=== PATIENT | female | born 1995 | race Caucasian/White ===

== ENCOUNTER 2023-01-03 11:42 | Outpatient (CLI) | payer OTHER, SELFPAY ==
[2023-01-03 18:14] LABS: Chlamydia DNA Amplified* NOT DETECTED (No Detected); GC DNA Amplified* NOT DETECTED (No Detected)
== END 2023-01-03 11:43 | disposition home or self-care (01) ==
PROVIDERS: PCP Family Medicine; Visit Provider Advanced Practice Midwife
DX: Z34.91 Encounter for supervision of normal pregnancy, unspecified, first trimester (principal); Z3A.08 8 weeks gestation of pregnancy
CPT/HCPCS: 86592; 86703; 86762; 86787; 86803; 86850; 86900; 86901; 87086; 87340; 87491; 87591

== ENCOUNTER 2023-01-03 12:06 | Outpatient (CLI) | payer OTHER, SELFPAY ==
--- NOTE | 2023-01-03 12:15 | CRLHL7_ITS ---
For Patients: As a result of the Century Cures Act, medical imaging exams and procedure reports are released immediately into your electronic medical record. You may view this report before your referring provider. If you have questions, please contact your health care provider. INDICATION: First trimester scan, establish dates. COMPARISON: None. TECHNIQUE: Real-time gonzales-scale imaging of the pelvis was performed. FINDINGS: Sonographic imaging demonstrates a single living intrauterine gestation. The embryo demonstrates a regular cardiac rate measuring 167 beats per minute. The embryo`s crown-rump length measurement of 1.8 cm corresponds to a gestational age of 8 weeks 1 day with a sonographic due date of August 14, 2023. There is a normal-appearing yolk sac. There are no gross abnormalities noted within the embryo at this early state of development. The placenta has not yet developed. The gestational sac has a normal appearance and there is no evidence of a perigestational hemorrhage. The amount of fluid within the sac appears appropriate for gestational age. The cervix is closed. The myometrium appears normal. The left ovary is normal in size and appearance measuring 2.8 x 1.9 x 2.1 cm. The right ovary is enlarged secondary to 2 adjacent simple cysts. Overall size of the right ovary measures 5.9 x 3.0 x 3.5 cm. There is a 2.3 x 3.2 x 2.9 cm cyst. There is a 2nd 3.4 x 3.0 x 3.2 cm cyst. There is also a corpus luteum cyst of measuring 2.6 x 1.8 x 2 cm. There are no suspicious fluid collections noted in the cul-de-sac. IMPRESSION: Normal first trimester OB ultrasound exam. Gestational age calculated at 8 weeks 1 day with a sonographic due date of August 14, 2023. Asymmetrically larger right ovary relative to the left secondary to 2 simple cysts and corpus luteum cyst of . Dictated by Placido Iraheta MD @ 01/04/2023 8:20:34 AM (Electronically Signed)
== END 2023-01-03 12:07 | disposition home or self-care (01) ==
LOC: US 12:08
PROVIDERS: PCP Family Medicine; Visit Provider Registered Nurse
DX: Z34.91 Encounter for supervision of normal pregnancy, unspecified, first trimester (principal); O34.81 Maternal care for other abnormalities of pelvic organs, first trimester; N83.11 Corpus luteum cyst of right ovary; Z3A.08 8 weeks gestation of pregnancy
CPT/HCPCS: 76817; 86703; 86803; 86850; 86900; 86901; 87340; 87491; 87591

== ENCOUNTER 2023-03-30 13:49 | Outpatient (CLI) | payer OTHER, SELFPAY ==
--- NOTE | 2023-03-30 14:00 | CRLHL7_ITS ---
For Patients: As a result of the Century Cures Act, medical imaging exams and procedure reports are released immediately into your electronic medical record. You may view this report before your referring provider. If you have questions, please contact your health care provider. INDICATION: Evaluate anatomy. COMPARISON: None. TECHNIQUE: Real time gonzales scale imaging of the fetus was performed. FINDINGS: Sonographic imaging demonstrates a single living intrauterine gestation. Fetus demonstrates a regular cardiac rate of 144 beats per minute. Fetus has a breech orientation. The placenta lies anteriorly without evidence of placenta previa. Amniotic fluid volume appears normal. Single deepest vertical pocket: 4.7 cm. The cervix is closed and measures 4.0 cm in length. The composite ultrasound gestational age is calculated at 20 weeks 6 days with an estimated sonographic due date of August 11, 2023. The estimated weight is 387 grams which lies at the 66th percentile. The following biometric measurements were obtained: Biparietal diameter: 4.7 cm/20 weeks 2 days 38% Head circumference: 18.1 cm/20 weeks 4 days 40% Abdominal circumference: 16.2 cm/21 weeks 2 days 67% Femur length: 3.4 cm/20 weeks 5 days 45% The HC/AC ratio measures: 1.12 range (1.06-1.25) On anatomic survey, there is a normal appearance of the cerebral ventricles, cisterna magna and cerebellum. The nose, lips, and facial profile appear normal. The cervical, thoracic and lumbar spine are well visualized and appear normal. There is a normal four-chamber heart view and the left and right ventricular outflow tracts appear normal. diaphragm, stomach, kidneys and bladder appear normal. The four extremities appear normal. IMPRESSION: Normal OB ultrasound exam with concordance of clinical and sonographic dating. No intrinsic abnormalities noted on anatomic survey. Dictated by Placido Iraheta MD @ 03/31/2023 11:12:00 AM (Electronically Signed)
== END 2023-03-30 13:50 | disposition home or self-care (01) ==
LOC: US 13:50
PROVIDERS: PCP Family Medicine; Visit Provider Advanced Practice Midwife
DX: Z34.92 Encounter for supervision of normal pregnancy, unspecified, second trimester (principal); Z3A.20 20 weeks gestation of pregnancy
CPT/HCPCS: 76805

== ENCOUNTER 2023-05-25 11:05 | Outpatient (CLI) | payer OTHER, SELFPAY | END 2023-05-25 11:06 | disposition home or self-care (01) | LOC: NFLDREF 06-02 09:06 | PROVIDERS: PCP Family Medicine; Referring Provider Family Medicine; Visit Provider Advanced Practice Midwife | DX: Z34.93 Encounter for supervision of normal pregnancy, unspecified, third trimester (principal); Z3A.28 28 weeks gestation of pregnancy | CPT/HCPCS: 86592 ==

== ENCOUNTER 2023-06-08 10:31 | Outpatient (CLI) | payer OTHER, SELFPAY | END 2023-06-08 10:32 | disposition home or self-care (01) | LOC: NFLDREF 10:42 | PROVIDERS: PCP Family Medicine; Visit Provider Advanced Practice Midwife | DX: Z34.93 Encounter for supervision of normal pregnancy, unspecified, third trimester (principal); Z3A.30 30 weeks gestation of pregnancy | CPT/HCPCS: 87086 ==

== ENCOUNTER 2023-06-09 09:36 | Outpatient (CLI) | payer OTHER, SELFPAY ==
[2023-06-09 09:43] VITALS: BP 123/73; PULSE 93; RESP 16; TEMP 36.8; O2SAT 98
[2023-06-09 14:04] VITALS: BP 123/76; PULSE 91; RESP 18; TEMP 36.6
[2023-06-09 14:32] LABS: Clue Cells No Clue Cells Seen (None Seen); Trichomonas No Trichomonas Seen (None Seen); Yeast No Yeast Seen (None Seen)
[2023-06-09 14:47] LABS: Fetal Fibronectin* Negative (Negative)
--- NOTE | 2023-06-09 15:12 | P.OBO_ITS ---
OB Outpatient HPI History of Present Illness Time Seen by Provider: 15:00 Date Seen: 06/09/23 History of Present Illness: 28 year old at 30.5 weeks gestation, [place] 08/13/23, presents after a fall this AM around 0830. She did not hit her abdomen in the fall. Initial plan was 4 hours of monitoring and plan to DC home after. She is RH + blood type. At the end of the 4 hours of monitoring, she was noted to have frequent bouts of contractions, which she is feeling. She does admit that she has been having increased contractions X 2 weeks, especially with activity, and has tried to decrease/limit her activity. Today's contractions do feel similar to what she has been having, though possibly slightly stronger. She was seen in the clinic recently and discussed these contractions, and a UA was collected. No wet prep was done, but she denies any abnormal discharge, itching, irritation, etc. Baby moving naturally: Yes Bleeding: No Contractions: Yes Leaking fluid: No Discharge: No Meds Home Medications and Allergies Home Medications Medication Instructions Recorded Confirmed Type ascorbic acid (vitamin C) 250 mg 250 mg PO QDAY 01/03/23 06/09/23 History tablet cholecalciferol (vitamin D3) 50 75 mcg PO QDAY 01/03/23 06/09/23 History mcg (2,000 unit) capsule mecobalamin (vitamin B12) 1,000 1,000 mcg PO QDAY 01/03/23 06/09/23 History mcg chewable tablet prenat.vits,nikki,rmp-uuhr-qtfmd 1 tab PO QDAY 01/03/23 06/09/23 History calcium carbonate 600 mg calcium 600 mg PO QDAY 03/30/23 06/09/23 History (1,500 mg) tablet (Calcium) multivitamin with iron (Daily 1 tab PO QDAY 06/08/23 06/09/23 History Vites/Iron tablet) Allergies Allergy/AdvReac Type Severity Reaction Status Date / Time shrimp Allergy Unknown Swelling Verified 06/09/23 09:47 of Lip/Tongue/Throat [facility] Medical History Allergy to seafood ?Z91.013 - Allergy to seafood (ICD-10) Anxiety ?F41.9 - Anxiety disorder, unspecified (ICD-10) Mild depression ?F32.A - Depression, unspecified (ICD-10) Painful menstruation ?N94.6 - Dysmenorrhea, unspecified (ICD-10) Family History (Updated 01/03/23 @ 13:18 by Christine Kenny CNM) Uncle Prostate cancer Father Pancreatic cancer, Onset Age: 72 Maternal Grandmother Diabetes Maternal Grandfather Diabetes Paternal Grandfather Stroke, Onset Age: 60 Paternal Grandmother Stroke, Onset Age: 60 Other No family history of breast cancer No family history of colorectal cancer Social History (Updated 01/03/23 @ 18:44 by Christine Kenny CNM) Narrative: Nonsmoker. Social EtOH (2/week). Daily exercise weights & cardio. . SOCIAL? ? Education: student - bachelors? ? Work: [employer]? ? Partner: Jemal, , automotive electrician helper ? ? Lives with: Jemal, mom ? ? Pets: farm? ? Abuse: Denies past Unable to assess current, partner present? ? Special Diet: Denies? ? Ok with a blood transfusion: yes? ? Culture or congregational beliefs: denies? RISK FACTORS? ? Exercise Times/wk: working on the farm? ? Depression/Anxiety: both, situational w/ of father.? ? Previous Treatments - briefly taken at that time Therapy - did at the time. MERLINE: 8 PHQ 9: 5 Feels as though these are tolerable levels and she is functioning well? ? Seat Belt Use: Routinely ? Smoking: Denies past/present? ? Alcohol/day: 1 glass of wine prior to finding out. ? ? Caffeine: 1 cup coffee/day - large cup? ? Drug Use: Denies past/present? Planning to breastfeed: yes? Breastfed other children NA Complications with previous NA? Smoking Status: Never smoker Little interest or pleasure in doing things: not at all Feeling down, depressed, or hopeless: several days History History 1 Elective abortions 0 Para 0 Spontaneous abortions 0 Hx # Term Pregnancies 0 Ectopic pregnancies Hx # Pregnancies 0 Multiple births Number of Living Children 0 OB - H&P: Exam Physical Exam Vital signs: Temp Pulse Resp BP Pulse Ox 97.9 F 91 18 123/76 98 06/09/23 14:04 06/09/23 14:04 06/09/23 14:04 06/09/23 14:04 06/09/23 09:43 Constitutional Constitutional: no acute distress Routine HEENT Exam Head: Present normocephalic Routine Neck Exam Neck: Present full ROM Routine Respiratory Exam Respiratory: Present CTA bilaterally Routine Cardiovascular Exam Cardiovascular: RRR Routine Abdominal Exam Abdominal: Present soft; Absent guarding, rigid or tenderness Comments: Gravid Routine Exam External: Absent erythema, lesions or discharge Detailed Labor and Delivery Exam Patient Gravid: Yes Dilation (cm): 0 Effacement (%): 0 Cervix position: anterior Consistency: firm Contraction intensity: Mild Fetus (Single) Amniotic Membrane Status: intact Heart Rate Baseline: 135 Monitor Accelerations: Present Monitor Decelerations: None Skilled Nursing Variability: Moderate (6-25) Routine Back/Spine/Pelvis Exam Back/Spine: full ROM Routine Neurological Exam Present alert and oriented X3 Routine Psychiatric Exam Present normal affect and normal thought process Labs Labs Laboratory Tests 06/09/23 Range/Units 14:04 Vaginal Trichomonas No Trichomonas Seen (None Seen) Vaginal Yeast No Yeast Seen (None Seen) Vaginal Clue Cells No Clue Cells Seen (None Seen) Fibronectin Negative (Negative) Assessment and Plan Assessment and plan (1) Fall: Status: Acute (2) Supervision of normal first : Status: Acute (3) Uterine contractions: Status: Acute Plan at 30.5 weeks Blood type O+ Fall 06/09/23 at 0830, no abdominal trauma Mild contractions, likely steven mirta Reviewed w/ Cleo the small risk for abruption following a fall. While these contractions are likely just continued steven mirta, they are frequent enough to meet the requirement for 24 hours of monitoring. I also recommended further assessment of them - a wet prep, fibronectin and a SVE. These labs returned negative and her cervix was closed and thick. She is agreeable to continued 24 hours of monitoring. Time Spent with Patient Time with Patient: less than 15 minutes Disposition: Observation Admit to [facility] (On L & D for continued monitoring X 24 hours)
[2023-06-09 19:33] VITALS: BP 117/77; PULSE 86
[2023-06-09 19:34] VITALS: PULSE 90; O2SAT 98
[2023-06-09 19:52] VITALS: BP 117/77; PULSE 88; RESP 16; TEMP 36.6; O2SAT 98
[2023-06-10] MEDS: ACETAMINOPHEN 500 MG TABLET 1000 MG PO (01:20)
--- NOTE | 2023-06-10 07:40 | W.PM.OB.MED ---
DS: Providers Provider Date Seen: 06/10/23 Primary care physician: Constanza Ingram MD Attending Physician on discharge: Christine Kenny CNM Date of Discharge: 06/10/23 DS: Diagnosis Discharge Diagnosis (1) Fall: Status: Acute Problem details: 24 hours post fall at 0830 on 06/10/23 (2) Supervision of normal first : Status: Acute (3) Uterine contractions: Status: Acute Problem details: No changes in frequency or intensity. Cervical exam unchanged. Discharge Plan Discharge Disposition: Home, Self-Care Primary Care Provider: Constanza Ingram Activity Restrictions/Additional Instructions: Patient verbalized understanding of reviewed discharge instructions. Discharge Orders: Discharge Order (Routine); Ordered 06/10/23 Ordered By: Magaly Rivas Discharge Medications: No Action prenat.vits,nikki,nnr-eddg-okazk Tablet 1 tab PO QDAY mecobalamin (vitamin B12) 1,000 mcg tablet,chewable 1,000 mcg PO QDAY ascorbic acid (vitamin C) 250 mg tablet 250 mg PO QDAY cholecalciferol (vitamin D3) 50 mcg (2,000 unit) capsule 75 mcg PO QDAY calcium carbonate [Calcium 600] 600 mg calcium (1,500 mg) tablet 600 mg PO QDAY multivitamin with iron [Daily Vites/Iron] Tablet 1 tab PO QDAY Forms: [employer] Info Instructions Hospital Course Course Hospital Course: Cleo was triaged yesterday after a fall at home. She was shruti regularly but not painfully since then. She does report feeling the same cramping for the last 2 weeks. She was observed over night with continuous monitoring. She is shruti every 1.5-6 minutes irregularly with some uterine irritability. This morning she still reports it as cramping and denies changes in how they are feeling. She denies bleeding or leaking fluid and is appreciating good movement. Reactive tracing with baseline 130, + accels, -decels, moderate variability. Cervical exam unchanged. She would like to discharge this morning. Reviewed labor signs and symptoms. Labs Labs: Laboratory Tests 06/09/23 Range/Units 14:04 Vaginal Trichomonas No Trichomonas Seen (None Seen) Vaginal Yeast No Yeast Seen (None Seen) Vaginal Clue Cells No Clue Cells Seen (None Seen) Fibronectin Negative (Negative) OB Problem List Additional Plan (1) Fall: Problem details: 24 hours post fall at 0830 on 06/10/23 Status: Acute (2) Supervision of normal first : Status: Acute (3) Uterine contractions: Problem details: No changes in frequency or intensity. Cervical exam unchanged. Status: Acute Plan Discharge home 24 hours post fall. Contractions unchanged in frequency or intensity. Cervical exam 0/thick/high. Unchanged from pervious exam. Reviewed labor precautions. DS: Summary Vital Signs Vital Signs: Vital Signs Temp Pulse Resp BP Pulse Ox 06/09/23 19:52 98 F 16 117/77 98 06/09/23 19:34 98 06/09/23 19:33 86 117/77 06/09/23 14:04 97.9 F 18 06/09/23 14:04 91 123/76 06/09/23 09:43 98.2 F 93 16 123/73 98 Discharge Examination General appearance: alert, in no apparent distress and normal affect Physical Examination findings: Psychiatric:? Alert and oriented x3? HEENT:? Normocephalic, atraumatic? Neck:? Supple without adenopathy or thyromegaly? Lungs:? Clear to auscultation bilaterally? Heart:? Regular rate and rhythm, no murmur, rub or gallop? Abdomen:? Soft, nontender, and gravid? Extremities:? No edema or erythema? Pelvic:? SVE: 0cm/thick/high? Membrane status:? intact?
[2023-06-10 08:35] VITALS: BP 103/69; PULSE 89
[2023-06-10 08:36] VITALS: PULSE 90; O2SAT 97
[2023-06-10 08:37] VITALS: RESP 16; TEMP 36.8
--- NOTE | 2023-06-10 09:43 | PC.OBNST ---
The provider's electronic signature indicates the NST is reactive/appropriate for gestational age. *Note to provider: If an addendum is required, open the patient's chart and click on the note under the Nurse/Allied Health tab.
== END 2023-06-10 09:30 | disposition home or self-care (01) ==
LOC: OB OUT 09:36 → OB 09:36
PROVIDERS: PCP Family Medicine; Visit Provider Advanced Practice Midwife
DX: O47.9 False labor, unspecified (principal); W19.XXXA Unspecified fall, initial encounter
CPT/HCPCS: 59025; 84112; 87210; 99213; A9270

== ENCOUNTER 2023-07-13 10:30 | Outpatient (CLI) | payer OTHER, SELFPAY | END 2023-07-13 10:31 | disposition home or self-care (01) | LOC: NFLDREF 07-17 06:46 | PROVIDERS: PCP Family Medicine; Referring Provider Family Medicine; Visit Provider Advanced Practice Midwife | DX: Z34.03 Encounter for supervision of normal first pregnancy, third trimester (principal); Z3A.35 35 weeks gestation of pregnancy | CPT/HCPCS: 87081; 87653 ==

== ENCOUNTER 2023-07-23 01:32 | Inpatient (IN) | payer OTHER, SELFPAY ==
[2023-07-23] VITALS (64 sets, daily range): BP systolic 93–129; BP diastolic 52–81; PULSE 71–95; RESP 16–18; TEMP 36.6–37.9; O2SAT 99–100; BMI 24.6
[2023-07-23] MEDS: hydrOXYzine pamoate 25 MG CAPSULE 100 MG PO ×2 (03:25→09:50)
[2023-07-23] MEDS: miSOPROStoL 25 MCG/0.25 TABLET PO ×2 (06:13→09:10)
--- NOTE | 2023-07-23 08:08 | P.LDBA_ITS ---
Subjective History of Present Illness Time Seen by Provider: 03:00 Date Seen: 07/23/23 Specific Issues/Plans H & P done 07/20 by Jovan Kenny 1. Hx of depression & anxiety, likely situation r/t of father. -Therapy and medication at that time to treat. -Reported noticed worsening mood but declines medication at this time 2. 2 cysts on Left ovary, Per Dr. Chow, follow up at anatomy scan 3. Heart Palpitation Needs PP pap Flu: 06/08/2023 Tdap- 06/08/2023 RSV: 07/06/2023 32wk Mental Health: 06/22/2023 34wk Hgb:07/06/2023 Comments: Cleo is being admitted to Labor and Delivery for SROM, large amount of clear fluid. She is a 28 year old G 1 P 0 at?37.0 weeks gestation. Her full history and physical was dictated by Kim on 07/20. Please see this for details. ? She states SROM occurred at about 0100. She is having mild contractions, but does not feel these are any stronger than what she has been having for weeks. She is coping well with labor pain/contractions. Her partner and mom are with her for support. She is planning an epidural for pain management if needed, but open to nitrous first. OB - Problem Based A/P Additional Plan (1) SROM (spontaneous rupture of membranes): Status: Acute (2) Supervision of normal first : Status: Acute Plan Assessment:?? at 37.0 weeks gestation?? GBS negative complicated by: -Hx of anxiety & depression, likely situational SROM, clear Not in active labor ? Plan:?? * Admit to L & D? * Reviewed option of expectant management vs augmentation. She would prefer to start augmentation in the next few hours. Decision made to proceed with cytotec to ripen her cervix. * Will give Vistaril to allow for some rest, as she has been up most of the night. * IV access: per protocol for IOL or epidural * Monitoring: per protocol for IOL or epidural * Candidate for analgesia of choice.? Planning nitrous, epidural for pain management * Anticipate progress to NVD Delivery/Labor/Induction Plan Plan: induction (Augmentation r/t PROM) Induction method: per misoprostol protocol OB Exam Physical Exam Vital signs: Temp Pulse Resp BP 98.8 F 86 16 109/70 07/23/23 07:34 07/23/23 07:34 07/23/23 07:00 07/23/23 07:34 Narrative: VSS, afebrile? General Appearance:? Calm, cooperative.? No acute distress.? Normal affect.? Psychiatric Exam: Alert and oriented, appropriate affect? HEENT: normocephalic, neck supple, full ROM? Respiratory:? Symmetrical chest wall movement.? Normal respiratory effort.? Clear to auscultation? Cardiac:? regular rate and rhythm? Abdomen: Gravid, non tender? Extremities:? normal and trace edema? Skin: warm, dry.??? Ctx:? Q 1-3 min apart.? Mild? ? ? FHTs:? Baseline: 135.? Variability: moderate.?? Accels: present.??? Decels:? none.? SVE: FT, softening per RN.? Membranes: ? SROM,? clear fluid, X 7 hours? Detailed Labor and Delivery Exam Patient Gravid: Yes
[2023-07-23] MEDS: MORPHINE 10 MG/ML inj IM (09:50)
[2023-07-23 12:43] LABS: Basophils Percent Auto 0.1 % (0.0-3.0); Eosinophils Percent Auto 0.4 % (0.0-7.0); Hematocrit 36.3 % (33.0-51.0); Hemoglobin* 12.3 gm/dL (12.0-16.0); Immature Granulocytes Pct Auto 0.4 %; Lymphocytes Percent Auto 11.2 % (20-44); Mean Corpuscular HGB Conc 34 gm/dL (32-36); Mean Corpuscular Hemoglobin 32 pg (26-34); Mean Corpuscular Volume 94 fL (80-100); Monocytes Percent Auto 8.4 % (0.0-11.0); Neutrophils Percent Auto 79.5 % (42.0-72.0); Platelet Count* 239 K/uL (140-440); RDW Coefficient of Variation % 12.6 % (11.5-15.5); Red Blood Count 3.86 m/uL (4.00-5.20); White Blood Count* 14.09 K/uL (4.50-11.00)
[2023-07-23] MEDS: LACTATED RINGERS 1000 ML 1,000 ML 125 ML IV ×3 (12:48→23:11)
[2023-07-23 12:51] LABS: Slide Review Reflex No
[2023-07-23] MEDS: ROPIVACAINE 0.2% 100 ml 100 ML 12 MG EPIDURAL ×2 (13:40→21:16)
[2023-07-23] MEDS: LIDOCAINE 2% (PF) 5 ML VIAL EPIDURAL (13:40)
--- NOTE | 2023-07-23 13:43 | PM.ANBPRC ---
[facility] Medical History Painful menstruation ?N94.6 - Dysmenorrhea, unspecified (ICD-10) Mild depression ?F32.A - Depression, unspecified (ICD-10) Anxiety ?F41.9 - Anxiety disorder, unspecified (ICD-10) Allergy to seafood ?Z91.013 - Allergy to seafood (ICD-10) Family History Uncle Prostate cancer Father Pancreatic cancer, Onset Age: 72 Maternal Grandmother Diabetes Maternal Grandfather Diabetes Paternal Grandfather Stroke, Onset Age: 60 Paternal Grandmother Stroke, Onset Age: 60 Other No family history of breast cancer No family history of colorectal cancer Social History (Updated 01/03/23 @ 18:44 by Christine Kenny CNM) Narrative: Nonsmoker. Social EtOH (2/week). Daily exercise weights & cardio. . SOCIAL? ? Education: student - bachelors? ? Work: [employer]? ? Partner: Jemal, , neon electrician ? ? Lives with: Jemal, mom ? ? Pets: farm? ? Abuse: Denies past Unable to assess current, partner present? ? Special Diet: Denies? ? Ok with a blood transfusion: yes? ? Culture or anglican beliefs: denies? RISK FACTORS? ? Exercise Times/wk: working on the farm? ? Depression/Anxiety: both, situational w/ of father.? ? Previous Treatments - briefly taken at that time Therapy - did at the time. MERLINE: 8 PHQ 9: 5 Feels as though these are tolerable levels and she is functioning well? ? Seat Belt Use: Routinely ? Smoking: Denies past/present? ? Alcohol/day: 1 glass of wine prior to finding out. ? ? Caffeine: 1 cup coffee/day - large cup? ? Drug Use: Denies past/present? Planning to breastfeed: yes? Breastfed other children NA Complications with previous NA? What is your current living situation?: I presently have a place to live Problems where you live: no known problems In the past 12 months, utilities in danger of being shut off: no In past 12 months, lack of transportation kept you from medical appts, meetings, work, or getting things needed for daily living: no In the past 12 mos, have been you worried that your food would run out before you had money to buy more?: never true In the past 12 mos, the food you bought just didn't last and you didn't have money to buy more?: never true Smoking Status: Never smoker How often does anyone, including family, friends and others, physically hurt you: never How often does anyone, including family, friends and others, insult or talk down to you: never How often does anyone, including family, friends and others, threaten you with harm: never How often does anyone, including family, friends and others, scream or curse at you: never Little interest or pleasure in doing things: not at all Feeling down, depressed, or hopeless: several days Meds Home Medications and Allergies Home Medications Medication Instructions Recorded Confirmed Type ascorbic acid (vitamin C) 250 mg 250 mg PO QDAY 01/03/23 07/23/23 History tablet cholecalciferol (vitamin D3) 50 75 mcg PO QDAY 01/03/23 07/23/23 History mcg (2,000 unit) capsule mecobalamin (vitamin B12) 1,000 1,000 mcg PO QDAY 01/03/23 07/23/23 History mcg chewable tablet prenat.vits,nikki,fqz-fmpy-pcpua 1 tab PO QDAY 01/03/23 07/23/23 History calcium carbonate 600 mg calcium 600 mg PO QDAY 03/30/23 07/23/23 History (1,500 mg) tablet (Calcium) ferrous sulfate 134 mg (27 mg 134 mg PO QDAY 06/22/23 07/23/23 History iron) tablet docusate sodium 100 mg capsule 100 mg PO QDAY 07/20/23 07/23/23 History (Colace) Allergies Allergy/AdvReac Type Severity Reaction Status Date / Time shrimp Allergy Unknown Swelling Verified 07/23/23 05:05 of Lip/Tongue/Throat Results Labs Labs: Laboratory Results - last 24 hr 07/23/23 12:34 WBC 14.09 H RBC 3.86 L Hgb 12.3 Hct 36.3 MCV 94 MCH 32 MCHC 34 RDW Coeff of Jamil 12.6 Plt Count 239 Neut % (Auto) 79.5 H Lymph % (Auto) 11.2 L Barton % (Auto) 8.4 Eos % (Auto) 0.4 Baso % (Auto) 0.1 Neut # (Auto) 11.20 H Lymph # (Auto) 1.60 Barton # (Auto) 1.20 H Eos # (Auto) 0.10 Baso # (Auto) 0.00 Abs Immat Gran (auto) 0.10 Imm/Tot Granulo (auto) 0.4 Vital Signs Vital Signs: Last Vital Signs Temp 98.8 F 07/23/23 07:34 Pulse 78 07/23/23 13:41 Resp 16 07/23/23 07:00 BP 114/69 07/23/23 13:41 Pulse Ox 100 07/23/23 13:40 Weight: 73.542 kg Height: 172.72 cm Anesthesia Procedures Epidural Insertion Patient Location: OB Start Time: 13:15 Stop Time: 13:50 Start Date: 07/23/23 Stop Date: 07/23/23 Reason for Block: primary anesthetic Patient Position: sitting Performed By: Bishop Ribeiro Preanesthetic Checklist: IV checked, risks and benefits discussed, surgical consent, monitors and equipment checked, pre-op evaluation, timeout performed and anesthesia consent Prep: chlorhexidine gluconate Monitoring: blood pressure monitoring, release specialist, continuous pulse oximetry and heart rate Approach: midline Vertebral Space: lumbar (1-5) Needle Type: Tuohy needle Injection Technique: continuous catheter (catheter) Needle gauge: 17 Needle Length (cm): 10 cm Needle Insertion Depth (cm): 5 Catheter Gauge: 19 Catheter Type: multi-orifice Catheter at skin depth (cm): 10 Test Dose Result: negative and lidocaine 1.5% with epinephrine 1 to 200,000
--- NOTE | 2023-07-23 14:28 | PM.OBPNL ---
Subjective Time Seen by Provider: 14:00 Date Seen: 07/23/23 Narrative: Cleo was given 2 doses of cytotec. Ctx continued to intensify. SVE prior to 3rd dose was 4/100/0. Decision made to hold that dose and monitor in a few hours for progress. Shortly after she decided to proceed with an epidural for pain management. She is now comfortable and resting with her epidural. SVE by RN after epidural was 6. Objective Exam: VSS, afebrile General Appearance:? Calm, cooperative. No acute distress. ? Psychiatric Exam: Alert and oriented, appropriate affect Abdomen: Gravid Ctx: ?Q 2-6 min apart. ? Moderate FHTs: Baseline: 120. Variability: min - mod . Accels: present. Decels: Occ late or early decels. SVE: 6 per rn Membranes: SROM, clear fluid X 13 hours ? Vital Signs: Last Vital Signs Temp 98.4 F 07/23/23 14:04 Pulse 75 07/23/23 14:24 Resp 16 07/23/23 07:00 BP 105/61 07/23/23 14:24 Pulse Ox 100 07/23/23 13:45 Plan Plan: Assessment:?? at 37.0 gestation?? GBS neg Patient is coping well with challenges of labor.?? Labor type: Augmented for PROM Comfortable with epidural ? Plan:?? Continue with expectant management at this time. Will continue to monitor for labor progress and FHTs. Continue with routine intrapartum cares as ordered.?? Patient encouraged to move and change positions to promote physiologic labor and .?? Anticipate progress to NVD.
[2023-07-23] MEDS: ACETAMINOPHEN 500 MG TABLET 1000 MG PO ×2 (19:01→20:29)
[2023-07-23] MEDS: ONDANSETRON 2 MG/ML inj 4 MG IV (19:08)
[2023-07-23] MEDS: OXYTOCIN 30 unit/500 ML in NS 30 UNIT/500 ML BAG IVPB (22:06)
--- NOTE | 2023-07-23 23:02 | P.OBPN_ITS ---
Subjective Time Seen by Provider: 23:02 Date Seen: 07/23/23 Narrative: Cleo was noted to be an anterior rim, reducible, but stated she did not have a strong urge to push. She labored down for a while, and was then noted to be complete w/ more pressure. Baby's station was noted to have changed little prior to pushing. Cleo pushed for about 2 hours. Noted good descent with pushing, but no overall progress in station. Pitocin also started to increase the regularity and intensity of the contractions. Increasing caput also noted. Dr. Garcia called to bedside for further evaluation. Per u/s by her, baby noted to be LOT. She attempted to turn baby manually, but infant returned to the same location after each try. See her note for further information. Options reviewed w/ pt. Decision made to try side lying release, forward leaning inversion, and possibly pushing on hands and knees to facilitate repositioning. If no progress towards an NVD, we will proceed with a c- section. Cleo agrees with this plan. Her partner and family remain at the bedside for support. During pushing, it was noted that Cleo's temp was increasing, and she felt warm. Tylenol given. Fluid bolus also given for tachycardia, which resolved. Objective Exam: VSS, afebrile General Appearance:? Calm, cooperative. No acute distress. ? Psychiatric Exam: Alert and oriented, appropriate affect Abdomen: Gravid Ctx: ?Q 1-4 min apart. ? Moderate - Strong FHTs: Baseline: 130. Variability: mod. Accels: present. Decels: occ early. SVE: complete, 0 station Membranes: SROM, clear fluid, X 22 hours ? Vital Signs: Last Vital Signs Temp 99 F 07/23/23 21:11 Pulse 79 07/23/23 22:39 Resp 18 07/23/23 21:11 BP 125/63 07/23/23 22:39 Pulse Ox 100 07/23/23 13:45 Plan Plan: Assessment:?? at 37.0 gestation?? GBS neg Patient is coping well with challenges of labor.?? Labor complicated by: -Complete & pushing. Little overall descent, and increasing caput noted. ? Plan:?? Will trying positioning to encourage change in position and continue pushing for the time. If no descent noted, will proceed with a Continue with routine intrapartum cares as ordered.?? Patient encouraged to move and change positions to promote physiologic labor and .?? Epidural continued for pain management. Monitor for progress to NVD.
[2023-07-24] VITALS (46 sets, daily range): BP systolic 103–150; BP diastolic 56–84; PULSE 70–102; RESP 16–20; TEMP 36.6–37.9; O2SAT 93–99
[2023-07-24] MEDS: ONDANSETRON 2 MG/ML inj 4 MG IV (00:20)
[2023-07-24] MEDS: AZITHROMYCIN 500 MG in 0.9 % SODIUM CHLORIDE 250 ml 250 ML 255 MG IVPB (00:42)
--- NOTE | 2023-07-24 00:49 | PM.OBCN1 ---
OB - CN: HPI Date of Consult Date Seen: 07/24/23 Patient: [facility] Patient (CNM) Consult date: 07/24/23 Requesting Physician: Christine Kenny CNM Primary Care Provider: Constanza Ingram MD Consult Narrative Reason for consult: arrest of labor Narrative: The patient is a 28 year old G 1 P 0 at 37 1/7 weeks gestation that was admitted to the Center on 07/23/23 for delivery after SROM. Patient had been complete and pushing for about 2 hours with very little descent. I was called in to evaluate at around 11pm. History History 1 Elective abortions 0 Para 0 Spontaneous abortions 0 Hx # Term Pregnancies 0 Ectopic pregnancies Hx # Pregnancies 0 Multiple births Number of Living Children 0 Labs GBS status: negative OB Labs: Lab Assessment Start: 07/23/23 04:35 Freq: ONCE Status: Complete Protocol: PC.OBGBS Activity Type Activity Date Activity User E-sign Co-sign Detail Recorded Client Recorded Date Recorded By Document 07/23/23 04:37 LAMBERTA [id number] 07/23/23 04:39 LAMBERTA 07/23/23 04:37 Lab Assessment GBS Status negative GBS Additional Criteria None No Treatment Needed OK Are Labs Available Yes Maternal Blood Type O Maternal RH Factor Positive Evaluate Maternal Rubella Immune Status Immune Hepatitis B Surface Antigen Negative Maternal HIV Status Negative Maternal Syphillis (RPR) Status Negative PFSH PFSH Medical History Painful menstruation ?N94.6 - Dysmenorrhea, unspecified (ICD-10) Mild depression ?F32.A - Depression, unspecified (ICD-10) Anxiety ?F41.9 - Anxiety disorder, unspecified (ICD-10) Allergy to seafood ?Z91.013 - Allergy to seafood (ICD-10) Family History Uncle Prostate cancer Father Pancreatic cancer, Onset Age: 72 Maternal Grandmother Diabetes Maternal Grandfather Diabetes Paternal Grandfather Stroke, Onset Age: 60 Paternal Grandmother Stroke, Onset Age: 60 Other No family history of breast cancer No family history of colorectal cancer Social History (Updated 01/03/23 @ 18:44 by Christine Kenny CNM) Narrative: Nonsmoker. Social EtOH (2/week). Daily exercise weights & cardio. . SOCIAL? ? Education: student - bachelors? ? 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 ? Partner: Jemal, , qualified craft worker electrician ? ? Lives with: Jemal, mom ? ? Pets: farm? ? Abuse: Denies past Unable to assess current, partner present? ? Special Diet: Denies? ? Ok with a blood transfusion: yes? ? Culture or taoist beliefs: denies? RISK FACTORS? ? Exercise Times/wk: working on the farm? ? Depression/Anxiety: both, situational w/ of father.? ? Previous Treatments - briefly taken at that time Therapy - did at the time. MERLINE: 8 PHQ 9: 5 Feels as though these are tolerable levels and she is functioning well? ? Seat Belt Use: Routinely ? Smoking: Denies past/present? ? Alcohol/day: 1 glass of wine prior to finding out. ? ? Caffeine: 1 cup coffee/day - large cup? ? Drug Use: Denies past/present? Planning to breastfeed: yes? Breastfed other children NA Complications with previous NA? What is your current living situation?: I presently have a place to live Problems where you live: no known problems In the past 12 months, utilities in danger of being shut off: no In past 12 months, lack of transportation kept you from medical appts, meetings, work, or getting things needed for daily living: no In the past 12 mos, have been you worried that your food would run out before you had money to buy more?: never true In the past 12 mos, the food you bought just didn't last and you didn't have money to buy more?: never true Smoking Status: Never smoker How often does anyone, including family, friends and others, physically hurt you: never How often does anyone, including family, friends and others, insult or talk down to you: never How often does anyone, including family, friends and others, threaten you with harm: never How often does anyone, including family, friends and others, scream or curse at you: never Little interest or pleasure in doing things: not at all Feeling down, depressed, or hopeless: several days Meds Home Medications and Allergies Home Medications Medication Instructions Recorded Confirmed Type ascorbic acid (vitamin C) 250 mg 250 mg PO QDAY 01/03/23 07/23/23 History tablet cholecalciferol (vitamin D3) 50 75 mcg PO QDAY 01/03/23 07/23/23 History mcg (2,000 unit) capsule mecobalamin (vitamin B12) 1,000 1,000 mcg PO QDAY 01/03/23 07/23/23 History mcg chewable tablet prenat.vits,nikki,ttu-vemv-ynvla 1 tab PO QDAY 01/03/23 07/23/23 History calcium carbonate 600 mg calcium 600 mg PO QDAY 03/30/23 07/23/23 History (1,500 mg) tablet (Calcium) ferrous sulfate 134 mg (27 mg 134 mg PO QDAY 06/22/23 07/23/23 History iron) tablet docusate sodium 100 mg capsule 100 mg PO QDAY 07/20/23 07/23/23 History (Colace) Allergies Allergy/AdvReac Type Severity Reaction Status Date / Time shrimp Allergy Unknown Swelling Verified 07/23/23 05:05 of Lip/Tongue/Throat OB - H&P: Exam Physical Exam: Vital signs: Temp Pulse Resp BP Pulse Ox 99 F 74 18 103/56 L 100 07/23/23 23:52 07/24/23 00:39 07/23/23 21:11 07/24/23 00:39 07/23/23 13:45 Narrative: Bedside US: LOP. Discussed positioning and recommended we could try a manual rotation if there was adequate space. Epidural in place. I was able to introduce my hand completely, I then gently lifted head and tried and counterclockwise rotation with little movement, bedside US was utilized again and clock reed rotation was performed and we could see how head rotated to AI but when released it turned right back to LOP. NST category 1. OB - Results Labs Labs: Short CBC 07/23/23 Range/Units 12:34 WBC 14.09 H (4.50-11.00) K/uL Hgb 12.3 (12.0-16.0) gm/dL Hct 36.3 (33.0-51.0) % Plt Count 239 (140-440) K/uL OB - CN: A/P Assessment and Plan (1) SROM (spontaneous rupture of membranes): Status: Acute (2) Supervision of normal first : Status: Acute Plan Discussed findings of bedside US and inability to manually rotate baby. Patient has been pushing for [address], in theory discussed that guidelines would consider failed arrest of descent after 4 hours of pushing. Discussed option to continue pushing for 1 more hour and if no significant progress proceeding with section (also, there was another delivery prior to her that was more unstable). Patient wanted to try to push for a bit longer, try different pushing positions to try to stimulate head rotation. NST is category 1. Uterine contractions are regular and strong, she is on Oxytocin 2-4 units. Good maternal pushing efforts. Update at around 12:30pm : Patient has been pushing w/o further descent. Oxytocin was turned off and patient would like to proceed with delivery. I was able to discuss how procedure is performed, risks of surgery such as bleeding and needing an emergency blood transfusion, discussed risks of blood transfusion such as allergic reaction, very rare risk of infection, risk of infection associated to surgery, damage to nearby organs such as the bladder, risk of blood clots. Discussed interventions to decrease these risks such as prophylactic antibiotics, SCDs, placement of avery catheter etc... Discussed family centered section, brief review of how care is different from a vaginal delivery etc... Informed consent signed and will proceed with unscheduled delivery.
--- NOTE | 2023-07-24 01:10 | P.OBPRC_ITS ---
OB Delivery Proc Additional Procedures Tubal Ligation at the time of : No Other: No Procedure Date of procedure: 07/24/23 Pre-op diagnosis: Arrest of descent, persistent LOP presentation, SROM Post-op diagnosis: same (Uterine atony w/o hemorrhage) Procedure Done: Global Will [facility] bill your pro fee for this procedure?: Yes Blood Loss Measurement Type: QBL (367) Bakri Used: No IV fluids (mL): 1,000 Urine Output (mL): 200 Surgeon: Giselle Brown MD Salesperson Pianos And Organs: None Anesthesia Type: Epidural Findings: FINDINGS: Live-born male , Vertex OP presentation, Apgars 7 and 8 at 1 and 5 minutes respectively. weight 6 lb 15 oz. Procedure Name: Primary Low Transverse Section Procedure Description: PROCEDURE: After obtaining informed consent, the patient was taken to the operating room where epidural anesthesia was found to be adequate. She was prepared and draped in the normal sterile fashion in the dorsal supine position with a leftward tilt. A Pfannenstiel skin incision was made with a scalpel about 2 cm above symphysis pubic bone, 12-15 cm in length. This incision was carried down to the underlying layer of fascia with the Bovie and scalpel. The fascia was incised in the midline and the incision extended laterally. The superior and inferior aspects of the fascial incision were grasped with Felton clamps, elevated and the underlying rectus muscles dissected off sharply and with electrocautery. The rectus muscles were then in the midline. The Blade O retractor was then placed into the incision. The lower uterine segment was then incised in a transverse fashion with the scalpel. Upon entry into the uterus, clear amniotic fluid was noted. The uterine incision was extended cephalo caudally with blunt finger fractionation. OP, deeply engaged. Asked for a sterile vaginal hand assistance to elevate the head. This followed by delivery of the right arm, initially I was unable to reduce. I was able to get my hand behind the occiput and I was trying to rotate head clockwise to present occiput to incision, he kept flexing head towards maternal right hip and presenting right arm through incision. I tried to access feet to attempt a breech extraction, no room. I then again, attempted rotation of vertex clockwise and was able to reduce arm and rotate baby to ROT and delivered. The cord was doubly clamped and cut, and the was handed off the field to [facility] for evaluation. The placenta was delivered spontaneously with umbilical cord traction and fundal massage. The uterus was cleared of all clots and debris. The uterine incision was reapproximated in a running locking fashion with a 0 Vicryl suture. A 2nd layer of the same suture was used to imbricate in horizontal fashion. The gutters were inspected and cleared of blood clot. All instruments and retractors were removed. Peritoneum re approximated with Vicryl 3-0. The subfascial tissues were carefully inspected and hemostasis assured. The fascia was reapproximated in a running fashion with a looped 0 Vicryl suture. The subcutaneous tissues were inspected and hemostasis was assured. The subcutaneous fat layer was reapproximated with interrupted sutures of 3-0 Vicryl. The skin was closed in a subcuticular fashion with 4-0 Monocryl. LiquiBand and dressing were applied. The patient tolerated the procedure well. Sponge, lap, needle, and instrument counts were reported as correct x2. The patient was taken to the recovery room, awake, and in stable condition. She did receive 2 grams of IV Ancef and 500mg of Azithromycin preoperatively. Complications: None Pathology: specimen obtained, sent to pathology (Placenta ) Surgery Debrief Performed: Yes Surgery Debrief Comment: Procedure name, QBL, pathology specimens Condition: stable Disposition: floor
[2023-07-24] MEDS: CEFAZOLIN 2 GM INJ IVP (01:33)
[2023-07-24] MEDS: miSOPROStoL 800 MCG/4 TABLET PR (02:03)
--- NOTE | 2023-07-24 02:25 | SUR.OPER ---
Placenta sent to pathology. Surgeon denied request of anything further.
--- NOTE | 2023-07-24 03:06 | P.ANES_ITS ---
Anesthesia Charges Start Date/Time Anesthesia Start Date: 07/24/23 Anesthesia Start Time: 01:22 Stop Date/Time Anesthesia Stop Date: 07/24/23 Anesthesia Stop Time: 02:55 Summary Emergency: [facility] [employer]
--- NOTE | 2023-07-24 03:07 | P.NB_ITS ---
Nerve Block Nerve Block Time Seen by Provider: 02:49 Date Seen: 07/24/23 Type of block requested by surgeon for post-operative analgesia: TAP Side: bilateral Time out performed: Yes Verification of patient name: Yes Verification of date of : Yes Site marking: not applicable Name of person performing procedure: Bishop Ribeiro Continuous monitoring Was continuous monitoring of O2 sat, B/P, monitoring tech, recorded every 15 minutes?: Yes Procedure Checklist: sterile prep, needles and gloves Ultrasound guided. Images saved: Yes Medications given in 5ml increments after negative aspiration: Marcaine %: 0.25 mL: 30 Needle gauge: 20 and Exparel mL: 10 Needle gauge: 20 Patient tolerated procedure well: Yes Block Charges Block Charge (with Pro Fee): TAP Bilateral Use of Ultrasound Machine for Block: Yes- US Guidance/pain block
[2023-07-24] MEDS: diphenhydrAMINE 50 MG/ML inj 12.5 MG IVP ×2 (04:06→04:46)
[2023-07-24] MEDS: LACTATED RINGERS 1000 ML 1,000 ML 125 ML IV (04:07)
[2023-07-24] MEDS: KETOROLAC 30 MG/ML inj IVP ×3 (08:35→20:35)
[2023-07-24] MEDS: DOCUSATE SODIUM 100 MG CAPSULE PO (08:40)
[2023-07-24] MEDS: hydrOXYzine pamoate 25 MG CAPSULE PO (09:12)
[2023-07-24] MEDS: ACETAMINOPHEN 500 MG TABLET 1000 MG PO ×2 (11:09→17:29)
[2023-07-24] MEDS: SODIUM CHLORIDE 0.9 % (FLUSH) 10 ML SYRINGE IVF (20:37)
[2023-07-25 00:09] VITALS: RESP 16; O2SAT 97
[2023-07-25 01:09] VITALS: RESP 16; O2SAT 98
[2023-07-25 02:09] VITALS: RESP 16; O2SAT 97
[2023-07-25] MEDS: KETOROLAC 30 MG/ML inj IVP ×2 (02:44→08:50)
[2023-07-25] MEDS: ACETAMINOPHEN 500 MG TABLET 1000 MG PO ×4 (02:50→23:56)
[2023-07-25 06:42] LABS: Hemoglobin* 9.4 gm/dL (12.0-16.0)
[2023-07-25 08:36] VITALS: BP 115/68; PULSE 81; RESP 16; O2SAT 97
[2023-07-25] MEDS: DOCUSATE SODIUM 100 MG CAPSULE PO (08:50)
--- NOTE | 2023-07-25 09:13 | P.OBPN_ITS ---
OB - PN:Subj Subjective Date Seen: 07/25/23 Patient comments OB post-: no complaints, pain well controlled, tolerating diet and flatus present Jackson status: and doing well Jackson feeding status: exclusively Narrative: The patient feels well.? The pain is well controlled with current medications.? She has no new complaints.? Urinary output is adequate and she is voiding w ithout difficulty.? Has a good appetite, is tolerating a general diet, is passing flatus, and has not had a bowel movement.? Has scant amount of rubra lochia.? She is ambulating well.?She is and feels that it is going well. Initially wanted to discharge today but after a discussion about the risks of discharging on POD1 and encouragement from her partner, she decided to stay tonight and discharge tomorrow. OB - PN: Obj Exam Physical Exam: Vital signs: Temp Pulse Resp BP Pulse Ox O2 Del Method 98.2 F 81 16 115/68 97 Room Air 07/24/23 23:49 07/25/23 08:36 07/25/23 08:36 07/25/23 08:36 07/25/23 08:36 07/25/23 08:36 Narrative: GENERAL APPEARANCE:? normal affect, alert, no distress? MOOD:? appropriate? CHEST:? clear to auscultation and percussion? HEART:? regular rate and rhythm? ABDOMEN:? soft, non-tender the uterine fundus is 2 cm Below Umbilicus, Midline and is appropriate for the stage of recovery. Incision well approximated without edema, redness, warmth, or drainage. Glue closure intact. EXTREMITIES:? normal and no edema? Urinary Catheter Management: Urethral: Cath placed during this visit: yes, but has since been removed by the nurse Reason for continuing: decision to DC catheter Removal date: 07/24/23 Removal time: 10:00 OB - PN: Obj Data Labs Labs: Laboratory Results - last 24 hr 07/25/23 06:22 Hgb 9.4 L OB - PN: A/P Delivery Assessment and Plan (1) Anxiety: Status: Chronic (2) Lactating mother: Status: Acute (3) care following delivery: Status: Acute Plan 28 year old on day 1.? 1. cares.? 2. Anticipate discharge tomorrow or the following day per patient preference.? Plan day: 1 Plan: routine care
[2023-07-25] MEDS: IBUPROFEN 600 MG TABLET PO ×2 (15:04→21:03)
[2023-07-25 16:37] VITALS: BP 123/78; PULSE 94; RESP 16
[2023-07-25 23:50] VITALS: BP 106/67; PULSE 71; RESP 18; TEMP 36.6; O2SAT 100
[2023-07-26] MEDS: IBUPROFEN 600 MG TABLET PO (03:00)
[2023-07-26] MEDS: ACETAMINOPHEN 500 MG TABLET 1000 MG PO (06:03)
[2023-07-26 07:45] VITALS: BP 121/77; PULSE 71; RESP 17; TEMP 36.6; O2SAT 100
--- NOTE | 2023-07-26 09:11 | P.DS_ITS ---
DS: Providers Provider Date Seen: 07/26/23 Date of admission: 07/23/23 01:32 Primary care physician: Constanza Ingram MD Admitting Clinician: Christine Kenny CNM Attending Physician on discharge: Natalia Plunkett CNM Date of Discharge: 07/26/23 DS: Diagnosis Discharge Diagnosis (1) care following delivery: Status: Acute (2) Lactating mother: Status: Acute (3) Anxiety: Status: Chronic (4) Mild depression: Status: Chronic Exam Narrative: Exam Narrative: VSS. ?AfebrileGENERAL APPEARANCE: ?normal affect, alert, no distress MOOD: ?appropriate HEENT: normocephalic, neck supple, full ROM CHEST: ?Symmetrical chest wall movement. ?Normal respiratory effort. ?Clear to auscultation HEART: ?regular rate and rhythm ABDOMEN: ?soft, non-tender. Uterine fundus is firm, 2 blow Umbilicus, Midline and is appropriate for the stage of recovery. ?Bowel sounds present. EXTREMITIES: ?normal and no edema SKIN: warm, dry. ?Incision clean/dry/well approximated. ?No signs of infection noted. Const: Vital Signs, click to edit/add: Vital Signs - 24 hr 07/25/23 16:37 07/25/23 23:50 07/26/23 07:45 Temperature 97.9 F 97.8 F Pulse Rate [Pulse Oximeter] 94 71 71 Respiratory Rate 16 18 17 Blood Pressure [Le ft Arm] 123/78 106/67 121/77 Pulse Oximetry 100 100 Oxygen Delivery Me thod Room Air Room Air Room Air Documenting provider has reviewed patient's vital signs: yes OB - DS: Summary Hospital Course Hospital Course: Cleo is a 28 y.o. G 1 P 1 who was admitted to [facility] for SROM. ?She had an section after pushing for 2 hours with little progress. The patient feels well. ?The pain is well controlled with current medications. ?She has no new complaints. ?She is breast feeding and reports things are going well. the patient has done well.? Vitals have been stable.? She has remained afebrile.? Has a good appetite, is tolerating a general diet. ?She is voiding without difficulty.? She is passing gas and has not yet had a bowel movement.? She is ambulating and denies any dizziness.? Has small amount of rubra lochia. She is planning condoms for prevention. plan: Discharge home with baby. Follow up in 2 weeks and 6 weeks. , may see if needed Hgb 9.4. Peripartum Data delivery method: Primary C/S; Labored Laceration description: None Procedures: Procedures Operation Date: 07/24/23 01:00 Actual Procedure Side Surgeon p Section Vanessa Brown MD complications: none Infant Gender: Male Infant Discharge Plan: Home Status at Discharge Functional status at discharge: independent ambulation Overall status at discharge: patient is progressing back to baseline Time Spent with Patient Time attestation: Total time spent providing and/or coordinating discharge services: Time spent: Less than 30 minutes Discharge Plan Discharge Disposition: Home, Self-Care Date of Admission: 07/23/23 01:32 Attending Provider on Discharge: Natalia Plunkett Primary Care Provider: Constanza Ingram Condition: Stable Anticipated Discharge Date/Time: 07/26/23 12:00 Discharge Medications: New acetaminophen 500 mg Tablet 1,000 mg PO Q6H PRN (Reason: Pain) Qty: 0 0RF docusate sodium 100 mg Capsule 100 mg PO DAILY Qty: 90 3RF ibuprofen 600 mg Tablet 600 mg PO Q6H PRN (Reason: Pain) Qty: 60 0RF oxycodone 5 mg Tablet 5 - 10 mg PO Q4H PRN (Reason: Pain) Qty: 10 0RF Continued prenat.vits,nikki,aot-ssbz-bggld Tablet 1 tab PO QDAY mecobalamin (vitamin B12) 1,000 mcg tablet,chewable 1,000 mcg PO QDAY ascorbic acid (vitamin C) 250 mg tablet 250 mg PO QDAY cholecalciferol (vitamin D3) 50 mcg (2,000 unit) capsule 75 mcg PO QDAY calcium carbonate [Calcium 600] 600 mg calcium (1,500 mg) tablet 600 mg PO QDAY ferrous sulfate 134 mg (27 mg iron) tablet 134 mg PO QDAY Discontinued docusate sodium [Colace] 100 mg capsule 100 mg PO QDAY Discharge Orders: Discharge Order (Routine); Ordered 07/26/23 Ordered By: Natalia Plunkett Patient Education: OB Over the Counter Medication Information, OB /Breast Feeding Additional Instructions: Discharge instructions were reviewed with the patient including signs and symptoms of infection and home going medications Lifting Restrictions: 20 pounds for 6 weeks No not submerge incision under water X 2 weeks? Nothing vaginally for 6 weeks: no tampons or intercourse Do not drive while taking narcotic pain medication(s) Off Work or School for 6 weeks 2-week visit: incision check, discuss feeding concerns, review control options and screen for anxiety/depression. 6-week visit for an annual exam. consultation services are available to all mothers and babies for the first year after delivery.? To make an appointment, please call [phone]. Activity Level: Activity as Tolerated Discharge Diet: Regular Follow Up Appointments: Constanza Ingram MD [Primary Care Provider] - [facility] [Provider Group] Forms: [employer] Info Instructions
== END 2023-07-26 11:30 | disposition home or self-care (01) | DRG 788 ==
PROVIDERS: Obstetrics & Gynecology; Admitting Provider Advanced Practice Midwife; PCP Family Medicine; Visit Provider Advanced Practice Midwife
PROC: 10D00Z1 Extraction of Products of Conception, Low, Open Approach (ICD-10-PCS; CPT 59514; principal; 2023-07-24 00:45)
DX: O99.344 Other mental disorders complicating childbirth (principal); F41.9 Anxiety disorder, unspecified; F32.A Depression, unspecified; O64.0XX0 Obstructed labor due to incomplete rotation of fetal head, not applicable or unspecified; O62.2 Other uterine inertia; G89.18 Other acute postprocedural pain; Z3A.37 37 weeks gestation of pregnancy; Z37.0 Single live birth
CPT/HCPCS: 01967; 01968; 36415; 59200; 64488; 76942; 85018; 85025; 86850; 86900; 86901; 88307; 99140; A9270; C9290; J0456; J0665; J0690; J1200; J1885; J2210; J2270; J2274; J2371; J2405; J2590; J2795; J3010; J7050; J7120

== ENCOUNTER 2024-10-08 13:50 | Outpatient (CLI) | payer OTHER, SELFPAY | END 2024-10-08 13:51 | disposition home or self-care (01) | LOC: US 13:51 | PROVIDERS: PCP Family Medicine; Visit Provider Advanced Practice Midwife | DX: Z34.91 Encounter for supervision of normal pregnancy, unspecified, first trimester (principal); O20.0 Threatened abortion; Z3A.08 8 weeks gestation of pregnancy | CPT/HCPCS: 76817 ==

== ENCOUNTER 2024-10-21 12:08 | Outpatient (CLI) | payer OTHER, SELFPAY ==
--- NOTE | 2024-10-21 12:15 | CRLHL7_ITS ---
For Patients: As a result of the Century Cures Act, medical imaging exams and procedure reports are released immediately into your electronic medical record. You may view this report before your referring provider. If you have questions, please contact your health care provider. INDICATION: Threatened COMPARISON: 10/08/2024 TECHNIQUE: Real-time gonzales-scale imaging of the pelvis was performed. Transvaginal. FINDINGS: Intrauterine gestational sac measures 2.2 cm, 7 weeks 1 day. No pole or yolk sac. Ovaries normal. No pelvic free fluid. IMPRESSION: Nonviable gestation. Dictated by Bravo Fraire MD @ 10/21/2024 1:26:45 PM (Electronically Signed)
== END 2024-10-21 12:09 | disposition home or self-care (01) ==
LOC: US 12:09
PROVIDERS: PCP Family Medicine; Visit Provider Advanced Practice Midwife
DX: O20.0 Threatened abortion (principal)
CPT/HCPCS: 76817

== ENCOUNTER 2024-11-25 14:27 | Outpatient (CLI) | payer OTHER, SELFPAY | END 2024-11-25 14:28 | disposition home or self-care (01) | LOC: NFLDREF 11-27 01:48 | PROVIDERS: PCP Family Medicine; Referring Provider Family Medicine; Visit Provider Advanced Practice Midwife | DX: O03.9 Complete or unspecified spontaneous abortion without complication (principal) | CPT/HCPCS: 84702 ==

== ENCOUNTER 2025-03-20 10:20 | Outpatient (CLI) | payer OTHER, SELFPAY | END 2025-03-20 10:21 | disposition home or self-care (01) | LOC: NFLDREF 10:21 | PROVIDERS: PCP Family Medicine; Visit Provider Obstetrics & Gynecology | DX: O20.9 Hemorrhage in early pregnancy, unspecified (principal) | CPT/HCPCS: 84702 ==

== ENCOUNTER 2025-03-22 10:46 | Outpatient (REF) | payer OTHER, SELFPAY ==
[2025-03-22 11:32] LABS: HCG Quantitative* 674.94 mIU/mL
== END 2025-03-22 10:47 | disposition home or self-care (01) ==
LOC: LAB 10:46
PROVIDERS: Obstetrics & Gynecology; PCP Family Medicine
DX: O20.9 Hemorrhage in early pregnancy, unspecified (principal)
CPT/HCPCS: 36415; 84702

== ENCOUNTER 2025-04-15 14:48 | Outpatient (CLI) | payer OTHER, SELFPAY ==
--- NOTE | 2025-04-15 15:00 | CRLHL7_ITS ---
For Patients: As a result of the Cures Act, medical imaging exams and procedure reports are released immediately into your electronic medical record. You may view this report before your referring provider. If you have questions, please contact your health care provider. OB ULTRASOUND INDICATION: Dating and viability. TECHNIQUE: Real time grayscale imaging of the fetus was performed. Transvaginal. Transvaginal imaging performed to better demonstrate the endometrium and ovaries. LMP: 02/20/2025. EDWARD by LMP: 11/27/2024. GA: 7 w, 5 d. Previous US: No. CRL: 1.5 cm. 7 w 6 d. EDWARD: 11/26/2024. FHR: 157 BPM. Gestational sac: 2.6 cm. Appears within normal limits. Yolk sac: 3.0 mm. Appears within normal limits. Right ovary: 2.7 x 1.3 x 2.2 cm. Left ovary: 3.7 x 2.0 x 2.2 cm. CL. IMPRESSION: 1. Single living intrauterine measuring 7 weeks 6 days and sonographic due date 11/26/2025. 2. Small left-sided subchorionic hemorrhage measures 14 x 3 x 2 mm. Bravo Fraire M.D. Diagnostic Radiologist [email or web address] [email or web address]/Dictated by: Bravo Fraire MD @ 04/15/2025 5:36:00 PM (Electronically Signed)
== END 2025-04-15 14:49 | disposition home or self-care (01) ==
LOC: US 14:49
PROVIDERS: PCP Family Medicine; Visit Provider Physician Assistant
DX: Z34.91 Encounter for supervision of normal pregnancy, unspecified, first trimester (principal); O20.9 Hemorrhage in early pregnancy, unspecified; Z3A.01 Less than 8 weeks gestation of pregnancy
CPT/HCPCS: 76817; 83021; 86592; 86703; 86704; 86706; 86762; 86787; 86803; 86850; 87086; 87340; 87491; 87591

== ENCOUNTER 2025-07-15 13:46 | Outpatient (CLI) | payer OTHER, SELFPAY ==
--- NOTE | 2025-07-15 14:00 | CRLHL7_ITS ---
For Patients: As a result of the Century Cures Act, medical imaging exams and procedure reports are released immediately into your electronic medical record. You may view this report before your referring provider. If you have questions, please contact your health care provider. OBSTETRICAL ULTRASOUND ??? ANATOMY SURVEY INDICATION: Supervision of normal . anatomy survey. CLINICAL HISTORY: LMP: 02/20/2025 EDWARD by LMP: 11/27/2025 Gestational age: 20 weeks 5 days TECHNIQUE: Real-time gonzales-scale transabdominal and transvaginal imaging of the fetus was performed. Transvaginal imaging was performed for better evaluation of the cervix and placenta. PREVIOUS ULTRASOUND: 04/15/2025. FINDINGS: position: Vertex Cervix: Visualized Technique: Transabdominal and transvaginal Length of closed cervix: 3.2 cm Placenta position: Anterior Technique: Transabdominal and transvaginal Placenta tip to internal os: 1.5 cm Umbilical cord: 3-vessel cord Placental insertion: Central Amniotic fluid: 4.5 cm SDP (greater than/equal to 2 to less than 8 cm) ANATOMY SURVEY: Observed Structures Cerebellum: Yes; 2.2 cm, 21 weeks 6 days Cisterna magna: Yes; 4.2 mm Nuchal fold: Yes; 5.2 mm Lateral ventricle: Yes; 5.9 mm CSP: Yes Midline falx: Yes Choroid plexus: Yes Spine: Yes Stomach: Yes Abdominal cord insert: Yes Urinary bladder: Yes Kidneys: Yes Diaphragm: Yes Nose/lips: Yes Orbital view: Yes Profile: Yes Upper extremities: Yes Lower extremities: Yes Hands: Yes Feet: Yes 4-chamber heart: Yes; see Impression LVOT: Yes RVOT: Yes 3VV: Yes 3VTV: Yes BIOMETRY BPD: 5.0 cm, 21 weeks 1 day, 67% HC: 18.8 cm, 21 weeks 1 day, 59% AC: 15.4 cm, 20 weeks 4 days, 38% FL: 3.4 cm, 20 weeks 4 days, 35% FL/AC: 21.89% HC/AC ratio: 1.22 heart rate: 144 bpm age by this ultrasound: 21 weeks 0 days EDWARD by this ultrasound: 11/25/2025 Estimated weight: 365.71 grams (0 pounds 13 ounces) Percentile by EDWARD: 40% IMPRESSION: 1) Low-lying anterior placenta located 1.5 cm from the internal cervical os with transvaginal imaging. 2) Echogenic focus in the left ventricle. Remainder of the anatomic survey is unremarkable, including renal pelvic measurements considered normal measuring 3.4 mm on the right and 3.3 mm on the left. A level 2 ultrasound should be considered. 3) Good correlation with dates. BRAVO PRESLEY M.D. Diagnostic Radiologist [email or web address] Transcribed: 7:[address]/Dictated by: Bravo Presley MD @ 07/15/2025 6:41:00 PM (Electronically Signed)
== END 2025-07-15 13:47 | disposition home or self-care (01) ==
LOC: US 13:46
PROVIDERS: PCP Family Medicine; Visit Provider Obstetrics & Gynecology
DX: O44.42 Low lying placenta NOS or without hemorrhage, second trimester (principal); Z3A.21 21 weeks gestation of pregnancy
CPT/HCPCS: 76805; 76817

== ENCOUNTER 2025-07-30 13:33 | Outpatient (CLI) | payer OTHER, SELFPAY | END 2025-07-30 13:34 | disposition home or self-care (01) | LOC: US 13:33 | PROVIDERS: PCP Family Medicine; Visit Provider Obstetrics & Gynecology | DX: O44.42 Low lying placenta NOS or without hemorrhage, second trimester (principal); O35.BXX0 Maternal care for other (suspected) fetal abnormality and damage, fetal cardiac anomalies, not applicable or unspecified; Z3A.22 22 weeks gestation of pregnancy | CPT/HCPCS: 76811; 76817 ==

== ENCOUNTER 2025-07-30 15:08 | Outpatient (CLI) | payer OTHER, SELFPAY ==
[2025-07-30 15:11] VITALS: BP 114/67; PULSE 90
[2025-07-30 15:12] VITALS: PULSE 99; O2SAT 100
[2025-07-30 16:20] LABS: Trichomonas No Trichomonas Seen (None Seen)
[2025-07-30 16:32] LABS: Appearance Urine Clear (Clear)
--- NOTE | 2025-07-30 17:36 | PM.OBLDTN ---
OB - Triage/Final Diagnosis Visit Information Time Seen by Provider: 17:36 Date Seen: 07/30/25 Date of evaluation: 07/30/25 Narrative: The patient is a 30 year old 3 para 1011 at 22.6 weeks gestation by LMP, who was sent from [facility] ultrasound today due to cramping and new finding of short cervix. She had a follow up level II ultrasound today due to low lying placenta and EIF on initial anatomy ultrasound on 07/15/25. Cleo cervix measured 1.8 cm today. She also reported on and off cramping and was sent to L&D triage for r/o labor. In triage, she reports her intermittent cramping to be 2/10 in terms of pain. After she voided free UA urine culture, Cleo reported resolution of uterine cramping. Cleo does not feel like these are labor contractions and reported having menstrual cramps worse then this. She would not they come on if her bladder is full or if she's had a big meal. She elected pelvic rest until this re-evaluation due to low-lying placenta on initial anatomy ultrasound. Reports active movement. Denies Ctx, LOF, vaginal bleeding or abnormal vaginal discharge. She has not noted increased pelvic pressure despite these cramping. Normal voids and BM. Patient denies fever, chills, chest pain, SOB, n/v, headache, vision changes, RUQ pain, or dizziness. Physical exam: General: No acute distress. Patient comfortable in bed. Psych: Alert and oriented x4, full affect HEENT: Normocephalic, atraumatic Lungs: Unlabored breathing Abdomen: Gravid, soft, no tenderness, rebound, or guarding. No uterine contractions noted on palpation. Lower extremities: No edema or erythema Pelvic exam: External genitalia normal in appearance. Perineum and anus normal appearance. Dry perineum. SVE: closed, ballotable. Cervix dose palpate short but very posterior. Bimanual exam reveals uterus to be soft, nontender, of anticipated size and contour. No CMT. A/P # Short cervix - Measuring 1.8 cm by TVUS on 07/30 - Monitor in triage for >3 hrs and found not to be in labor - FFN deferred due to recent transvaginal ultrasound - Wet prep negative, GC/Chlam negative, UA wnl, UCx pending - Plan for vaginal progesterone 200 mg nightly. Prescription sent - Stat referral placed for TVUS to reassess cervical length on Monday or Monday with [facility] care team. If further shortening occurs to less than 10 mm despite vaginal progesterone and without labor or bleeding, a cerclage may be warranted. - Will send message to receptionist scheduler to coordinate referral [facility]being US today: Presentation breech/Placental location anterior/MVP 5.4 cm/EFW 503.27 g FHT: 140s-150s [place]: Irregular contractions noted. Nonpainful Strict return and labor precautions reinforced. Evaluation Laboratory results: Laboratory Tests 07/30/25 Range/Units 15:17 Urine Color Yellow (Yellow) Urine Appearance Clear (Clear) Urine pH 7.0 (5.0-8.5) Ur Specific [place] 1.015 (1.000-1.030) Urine Protein Negative (Negative) Urine Glucose (UA) Negative (Negative) Urine Ketones Negative (Negative) Urine Blood Negative (Negative) Urine Nitrite Negative (Negative) Urine Bilirubin Negative (Negative) Urine Urobilinogen 0.2 (0.2-1.0) Ur Leukocyte Esterase Negative (Negative) Vaginal Trichomonas No Trichomonas Seen (None Seen) Vaginal Yeast No Yeast Seen (None Seen) Vaginal Clue Cells No Clue Cells Seen (None Seen) Vaginal Bacterial Vaginosis Pending Vaginal Angela species Pending Vag C. glabrata/krusei Pending Vag T. vaginalis Pending C.trachomatis Ampl DNA Pending N.gonorrhoeae Ampl DNA Pending Group B Strep DNA Pending Vital signs: Vital Signs - 24 hr 07/30/25 15:11 07/30/25 15:12 Pulse Rate 90 Blood Pressure 114/67 Pulse Oximetry 100
[2025-07-30 17:42] LABS: Chlamydia DNA Amplified* NOT DETECTED (No Detected); GC DNA Amplified* NOT DETECTED (No Detected)
--- NOTE | 2025-07-30 17:51 | PC.OBNST ---
NST Note NST Note Start: 07/30/25 15:17 Freq: ONCE Status: Active Protocol: Document 07/30/25 17:15 CASEY (Rec: 07/30/25 17:51 CASEY [id number]) NST Note 3 Para (# of births) 1 EDC 11/27/25 Gestational Age In 22 Weeks & 6 Days Weeks & Days Patient Presented Contractions/cramping with Complaint(s) of Other Complaints Sent over for monitoring UC's and infectious panel. Doptones obtained as ordered, 140-155 Appropriate for Yes Gestational Age ORV[place]LE Estrella Date 07/30/25 Appropriate for Yes Gestational Age [place] Tracy Date 07/30/25 OB NST charge Yes Complete NST Note Yes via Write Note The provider's electronic signature indicates the NST is reactive/appropriate for gestational age. *Note to provider: If an addendum is required, open the patient's chart and click on the note under the Nurse/Allied Health tab.
[2025-07-31 19:26] LABS: Strep B DNA Probe Negative (Negative)
[2025-07-31 22:00] LABS: Strep B Susceptibility Needed? No
[2025-07-31 23:05] LABS: Bacterial Vaginosis* Negative (Negative); Candida glab/krus NOT DETECTED (No Detected)
== END 2025-07-30 17:40 | disposition home or self-care (01) ==
LOC: OB OUT 15:09 → OB 15:10
PROVIDERS: PCP Family Medicine; Visit Provider Obstetrics & Gynecology
DX: O47.02 False labor before 37 completed weeks of gestation, second trimester (principal); Z3A.22 22 weeks gestation of pregnancy; O44.42 Low lying placenta NOS or without hemorrhage, second trimester; O35.BXX0 Maternal care for other (suspected) fetal abnormality and damage, fetal cardiac anomalies, not applicable or unspecified
CPT/HCPCS: 59025; 81003; 81513; 87081; 87086; 87210; 87481; 87491; 87591; 87653; 87661; G0463

== ENCOUNTER 2025-08-19 11:25 | Outpatient (CLI) | payer OTHER, SELFPAY | END 2025-08-19 11:26 | disposition home or self-care (01) | PROVIDERS: PCP Family Medicine; Visit Provider Obstetrics & Gynecology | DX: L29.9 Pruritus, unspecified (principal); O99.712 Diseases of the skin and subcutaneous tissue complicating pregnancy, second trimester | CPT/HCPCS: 80076; 82239 ==

== ENCOUNTER 2025-09-01 10:03 | Outpatient (CLI) | payer OTHER, SELFPAY | END 2025-09-01 10:04 | disposition home or self-care (01) | LOC: NFLDREF 09-06 02:42 | PROVIDERS: PCP Family Medicine; Referring Provider Family Medicine; Visit Provider Obstetrics & Gynecology | DX: L29.9 Pruritus, unspecified (principal) | CPT/HCPCS: 80076; 82239 ==

== ENCOUNTER 2025-09-01 10:28 | Outpatient (CLI) | payer OTHER, SELFPAY ==
--- NOTE | 2025-09-01 15:31 | W.PM.LAC.MC ---
Consult Note - Mom Date of Visit Date of visit: 09/01/25 Reason for consultation: Other ( planning) Visit Code: Visit Patient's Information Phone number: [phone] : 3 Para: 1 Allergies iodine Allergy (Unknown, Verified 08/25/25 09:29) shrimp Allergy (Unknown, Verified 08/25/25 09:29) Swelling of Lip/Tongue/Throat Mother's Medical History: Medical History (Updated 08/26/25 @ 14:00 by Estela Chow MD) Mild depression ?F32.A - Depression, unspecified (ICD-10) Anxiety ?F41.9 - Anxiety disorder, unspecified (ICD-10) Fall ?W19.XXXA - Unspecified fall, initial encounter (ICD-10) Painful menstruation ?N94.6 - Dysmenorrhea, unspecified (ICD-10) 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 No erythema. Nipples are supple, everted. Maternal Nipple Condition - Left: Common Nipple Maternal Nipple Condition - Right: Common Nipple Assessments/Interventions Assessments/Interventions: Cleo is here to better prepare herself for this baby. She is currently 27 weeks . She attempted to breastfeed her first baby, but he only latched for a few days and then just stopped. They tried SNS for feedings to get him relatched without success and and she ended up pumping and bottling for over a year. She very much hopes to breastfeed this baby and is seeking to gain knowledge to better help with this. topics discussed and questions answered: Carias Hour after and getting started with Importance of latch for milk transfer and less/minimal nipple pain What to expect the first few days of feeding Baby hunger cues What the feeding routine looks like Nipple care milk expression: pumping vs. hand expression Skin to skin, especially during the hospital stay to see early feeding cues and respond accordingly Breast pump information Touched on returning to work Given her first baby was born at 37 weeks, which may have added to his difficulty nursing, touched on feeding babies that are born early, some of the challenges and support available should that happen again. Discussed support available while at the hospital as well as outpatient support/follow up available. Questions answered; encouraged her to reach out if more questions arise prior to of baby. Time Spent Time spent with patient (min): 45 Meds Home Medications and Allergies Home Medications ?Medication ?Instructions ?Recorded ?Confirmed ?Type [id number] 3 fatty no.1 27 cap PO 01/27/25 08/25/25 History mg-1 mg-300 mg capsule acetaminophen 500 mg tablet 500 mg PO Q6H PRN 05/13/25 08/25/25 History (Tylenol Extra Strength) cetirizine 10 mg capsule (Zyrtec) 10 mg PO QDAY PRN 07/15/25 08/25/25 History docusate sodium 100 mg capsule 100 mg PO QDAY 07/15/25 08/25/25 History (Stool Softener) progesterone micronized 200 mg 200 mg vaginal QHS 60 days #60 caps 07/30/25 08/25/25 Rx capsule Allergies Allergy/AdvReac Type Severity Reaction Status Date / Time iodine Allergy Unknown Verified 08/25/25 09:29 shrimp Allergy Unknown Swelling Verified 08/25/25 09:29 of Lip/Tongue/Throat
== END 2025-09-01 10:29 | disposition home or self-care (01) ==
LOC: OB LAC 10:29
PROVIDERS: PCP Family Medicine; Visit Provider Obstetrics & Gynecology
DX: Z39.1 Encounter for care and examination of lactating mother (principal); L29.9 Pruritus, unspecified
CPT/HCPCS: G0463

== ENCOUNTER 2025-09-08 09:53 | Outpatient (CLI) | payer OTHER, SELFPAY | END 2025-09-08 09:54 | disposition home or self-care (01) | LOC: NFLDREF 09-13 21:57 | PROVIDERS: PCP Family Medicine; Referring Provider Family Medicine; Visit Provider Obstetrics & Gynecology | DX: L29.9 Pruritus, unspecified (principal); Z34.93 Encounter for supervision of normal pregnancy, unspecified, third trimester | CPT/HCPCS: 80076; 82239; 86780 ==